=== PATIENT | female | born 2000 | race Caucasian/White ===

== ENCOUNTER 2021-05-02 20:10 | Emergency (ER) | payer SELFPAY ==
[~2021-05-02] VITALS: Ht 162.6 cm; Wt 54.4 kg
[2021-05-02 20:20] VITALS: Ht 162.6 cm; Wt 54.4 kg
[2021-05-02] MEDS ORDERED: PRENATAL (20:21)
[2021-05-02] MEDS ORDERED: DEPRESSION MED (20:21)
[2021-05-02 21:11] LABS: BACTERIA FEW HPF (<MOD); BILIRUBIN NEGATIVE (NEGATIVE); KETONE NEGATIVE mg/dL (< 1+); NITRITE NEGATIVE (NEGATIVE); SQUAMOUS EPITHELIAL 6 HPF (0-4); UROBILINOGEN 4 mg/dL (< 2); WHITE CELLS - URINE 83 HPF (0-4)
[2021-05-02 21:41] LABS: BASOPHILS 0.5 % (0-2); EOSINOPHILS 0.5 % (0-7); HEMATOCRIT 35.2 % (36.0-48.0); HEMOGLOBIN 11.2 g/dL (12-16); LYMPHOCYTES 18.7 % (15-50); MCH 25.3 pg (26.0-34.0); MCHC 31.8 g/dL (31.0-37.0); MCV 79.5 fL (80.0-100.0); MEAN PLATELET VOLUME 8.1 fL (7.4-10.4); MONOCYTES 5.7 % (2-11); NEUTROPHILS 74.6 % (40-80); PLATELET COUNT 303 10x3/uL (130-400); RBC 4.43 10x6/uL (4.00-5.40); RDW 18.4 % (11.5-14.5); WBC 5.1 10x3/uL (4.8-10.8)
[2021-05-02 21:51] LABS: CALC OSMOLALITY 273 mosm/kg (275-300); CALCIUM 8.9 mg/dL (8.5-10.1); CARBON DIOXIDE 23.8 mmol/L (21.0-32.0); CHLORIDE - SERUM 102 mmol/L (98-107); CREATININE - SERUM 0.7 mg/dL (0.6-1.3); GLUCOSE 126 mg/dL (74-106); POTASSIUM - SERUM 3.2 mmol/L (3.5-5.1); SODIUM 137 mmol/L (136-145); UREA NITROGEN 8 mg/dL (7-18); eGFR NON AFRICAN AMERICAN > 90 mL/min (90-120)
[2021-05-02] MEDS ORDERED: MACROBID100 MG PO (22:15)
[2021-05-02] MEDS ORDERED: ZOFRAN ODT4 MG/UDTAB PO (22:19)
[2021-05-02] MEDS ORDERED: HYDROCODONE-AC1 EAC2 PO (22:19)
[2021-05-02 22:20] LABS: ALBUMIN 4.4 g/dL (3.4-5.0); ALKALINE PHOSPHATASE 65 U/L (30-120); ALT (SGPT) 25 U/L (10-68); BILIRUBIN - TOTAL 0.47 mg/dL (0.2-1.3); HCG - QUANTITATIVE (MATERNAL) 34505 mIU/mL; PROTEIN - SERUM 8.6 g/dL (6.4-8.2)
[2021-05-02 22:51] LABS: HCG SERUM POSITIVE (NEGATIVE)
[2021-05-02 22:55] VITALS: BP 128/86
== END 2021-05-02 22:40 | disposition home or self-care (01) ==
LOC: D.ER 20:10
PROVIDERS: Family Medicine
DX: O02.1 Missed abortion (principal); Z3A.10 10 weeks gestation of pregnancy; O23.41 Unspecified infection of urinary tract in pregnancy, first trimester